=== PATIENT | male | born 1995 | race Caucasian/White ===

== ENCOUNTER → 2020-06-29 | Outpatient (CLI) | payer BC ==
--- NOTE | 2020-06-29 12:27 | REP ---
INDICATION: S/P FALL L FOOT/ANKLE INJURY. COMPARISON: None. FINDINGS: No acute fracture or destructive osseous lesion. The mortise is intact. IMPRESSION: No acute abnormality of the ankle. See the foot report. <Electronically signed by Mike Mcfarland > 06/29/20 [id number]
--- NOTE | 2020-06-29 12:32 | REP ---
INDICATION: S/P FALL L FOOT/ANKLE INJURY. COMPARISON: None. TECHNIQUE: Four views FINDINGS: There is irregularity along the lateral cortical margin of the cuboid with additional cortical irregularity seen along the anterior margin of the navicular. IMPRESSION: Findings, as described above, suspicious for avulsion fractures. The densities adjacent to the cuboid also nearly abut the distal lateral os calcis potentially representing avulsion fracture as well. Consider CT for further evaluation. <Electronically signed by Mike Mcfarland > 06/29/20 [id number]
== END ==
LOC: M RAD 11:58
PROVIDERS: ATTEND Physician Assistant Medical
DX: M25.572 Pain in left ankle and joints of left foot (principal); Z91.81 History of falling